=== PATIENT | female | born 1945 | race Caucasian/White ===

== ENCOUNTER 2022-03-24 10:24 | Outpatient (CLI) | payer MEDICARE, OTHER, SELFPAY ==
--- NOTE | 2022-03-24 12:48 | W.ANESCHARGE ---
Anesthesia Charges Start Date/Time Anesthesia Start Date: 03/24/22 Anesthesia Start Time: 11:43 Stop Date/Time Anesthesia Stop Date: 03/24/22 Anesthesia Stop Time: 12:46 Summary Emergency: No Extremes of Age: Over [id number] [id number]
--- NOTE | 2022-03-24 12:53 | W.ANESCHARGE ---
Anesthesia Charges Start Date/Time Anesthesia Start Date: 03/24/22 Anesthesia Start Time: 11:43 Stop Date/Time Anesthesia Stop Date: 03/24/22 Anesthesia Stop Time: 12:46 Summary Emergency: No
== END 2022-03-24 10:25 | disposition home or self-care (01) ==
LOC: OP CLINIC 10:27
PROVIDERS: PCP Family Medicine; Visit Provider Surgery
DX: K52.9 Noninfective gastroenteritis and colitis, unspecified (principal); K63.5 Polyp of colon; K92.2 Gastrointestinal hemorrhage, unspecified; K57.30 Diverticulosis of large intestine without perforation or abscess without bleeding
CPT/HCPCS: 45380; 45381; 45385; 811; 88305; 99100

== ENCOUNTER 2024-04-23 14:32 | Inpatient (IN) | payer MEDICARE, OTHER, SELFPAY ==
[2024-04-23] VITALS (27 sets, daily range): BP systolic 112–143; BP diastolic 59–80; PULSE 66–85; RESP 18–32; TEMP 37.1–38.1; O2SAT 90–94; BMI 29.2; BMI 31.2
--- NOTE | 2024-04-23 15:01 | ED_ITS ---
HPI - General Adult General Time Seen by Provider: 15:01 Date Seen: 04/23/24 Chief complaint: Chest Pain Stated complaint: Heart pain, temp, chest pain last night Time Seen by Provider: 04/23/24 14:43 Source: patient and RN notes reviewed Mode of arrival: ambulatory Limitations: no limitations History of Present Illness HPI narrative: This 78-year-old female is brought in by her neighbor for concern of possible heart attack. At 2:00 a.m. she reports she awoke last night feeling chilled and was freezing. She did not know she had a temperature but did have 1 on arrival here of 100.6? F. She did feel short of breath with exertion. Around 4:00 a.m. today she started with right-sided chest pain. She has headache. She has right-sided flank pain. She has had a partial nephrectomy for kidney cancer but denies any history of pyelonephritis. It does not sound like she has chronic history of UTIs. This right-sided kidney pain has been coming and going. It did start up again last night. She has a dry mouth right now, has not had any appetite today but no nausea or vomiting. She has had poor oral intake. She feels weak and dizzy. She is not coughing. Related Data Home Medications ?Medication ?Instructions ?Recorded ?Confirmed acetaminophen 500 mg capsule 1,000 mg PO Q12H 04/23/24 04/23/24 atenolol 50 mg tablet 50 mg PO DAILY 04/23/24 04/23/24 chlorthalidone 25 mg tablet 12.5 mg PO DAILY 04/23/24 04/23/24 gabapentin 100 mg capsule mg PO 04/23/24 levothyroxine 112 mcg tablet 112 mcg PO QAM 04/23/24 04/23/24 multivitamin 1 tab PO DAILY 04/23/24 04/23/24 potassium chloride 20 mEq 20 meq PO DAILY 04/23/24 04/23/24 tablet,extended release(part/cryst) (Klor-Con M) sertraline 100 mg tablet 100 mg PO DAILY 04/23/24 04/23/24 spironolactone 25 mg tablet 25 mg PO QAM 04/23/24 04/23/24 Allergies Allergy/AdvReac Type Severity Reaction Status Date / Time acetaminophen Allergy Unknown Nausea Verified 04/23/24 17:41 amlodipine Allergy Unknown Arthralgias Verified 04/23/24 17:41 codeine Allergy Unknown Verified 04/23/24 17:41 furosemide Allergy Unknown Rash Verified 04/23/24 17:41 hydrocodone Allergy Unknown Nausea Verified 04/23/24 17:41 latex Allergy Unknown Itching Verified 04/23/24 17:41 and bumpy rash lisinopril Allergy Unknown Tingling Verified 04/23/24 17:41 Milk derivatives Allergy Unknown Uncoded 04/23/24 17:41 Review of Systems Status of ROS: Reports: 6 or more systems reviewed and unremarkable except as noted in History and below [facility] Medical History Depression ?F32.A - Depression, unspecified (ICD-10) Peripheral sensory neuropathy ?G60.8 - Other hereditary and idiopathic neuropathies (ICD-10) Renal cancer ?C64.9 - Malignant neoplasm of unspecified kidney, except renal pelvis (ICD- 10) Thyroid cancer ?C73 - Malignant neoplasm of thyroid gland (ICD-10) Hypertension ?I10 - Essential (primary) hypertension (ICD-10) Hyperlipidemia ?E78.5 - Hyperlipidemia, unspecified (ICD-10) Meningioma ?D32.9 - Benign neoplasm of meninges, unspecified (ICD-10) Hepatic steatosis ?K76.0 - Fatty (change of) liver, not elsewhere classified (ICD-10) Chronic diarrhea ?K52.9 - Noninfective gastroenteritis and colitis, unspecified (ICD-10) [place] syndrome ?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Z90.49 - Acquired absence of other specified parts of digestive tract (ICD- 10) Family History (Updated 04/23/24 @ 19:35 by Solitario Mitchell MD) Mother High blood pressure Father High blood pressure Heart disease Social History (Updated 04/23/24 @ 19:36 by Solitario Mitchell MD) Narrative: She lives alone in [place]. Her healthcare power of sharemilker is her neighbor, Fermin Jessica, and her daughter Deyanira. She does not smoke. She does not drink alcohol. What is your current living situation?: I presently have a place to live Problems where you live: no known problems Problems where you live details: NA In the past 12 months, utilities in danger of being shut off: no In past 12 months, lack of transportation kept you from medical appts, meetings, work, or getting things needed for daily living: no In the past 12 mos, have been you worried that your food would run out before you had money to buy more?: never true In the past 12 mos, the food you bought just didn't last and you didn't have money to buy more?: never true Highest level of school completed/degree received: Doctoral degree Smoking Status: Never smoker Do you use any of these nicotine containing products: None Second hand tobacco smoke exposure: No How often do you have a drink containing alcohol: never How often do you have six or more drinks on one occasion: Never AUDIT-C Alcohol total score: 0 Non-prescribed substance use: denies use Caffeine: Yes How often does anyone, including family, friends and others, physically hurt you : never How often does anyone, including family, friends and others, insult or talk down to you: never How often does anyone, including family, friends and others, threaten you with harm: never How often does anyone, including family, friends and others, scream or curse at you: never service: No Exam 2 Const: Vital Signs, click to edit/add: Vital Signs - 24 hr 04/23/24 14:40 04/23/24 14:49 04/23/24 14:50 Temperature 100.6 F H Pulse Rate 83 82 Pulse Rate [Pulse Oximeter] 85 Respiratory Rate 32 H Blood Pressure Blood Pressure [Le ft Upper Arm] 125/80 Pulse Oximetry 94 94 94 Oxygen Delivery Me thod Room Air Room Air Room Air 04/23/24 15:00 04/23/24 15:02 04/23/24 15:10 Temperature Pulse Rate 79 79 78 Pulse Rate [Pulse Oximeter] Respiratory Rate Blood Pressure 142/67 H Blood Pressure [Le ft Upper Arm] Pulse Oximetry 94 93 93 Oxygen Delivery Me od Room Air Room Air Room Air 04/23/24 15:20 04/23/24 15:31 04/23/24 15:32 Temperature Pulse Rate 79 79 77 Pulse Rate [Pulse Oximeter] Respiratory Rate Blood Pressure 134/73 Blood Pressure [Le ft Upper Arm] Pulse Oximetry 93 91 91 Oxygen Delivery Me od Room Air 04/23/24 15:33 04/23/24 15:35 04/23/24 15:37 Temperature 100.6 F H Pulse Rate 77 Pulse Rate [Pulse Oximeter] Respiratory Rate Blood Pressure Blood Pressure [Le ft Upper Arm] Pulse Oximetry 91 92 Oxygen Delivery Me thod 04/23/24 15:40 04/23/24 15:50 04/23/24 16:00 Temperature Pulse Rate 75 76 77 Pulse Rate [Pulse Oximeter] Respiratory Rate Blood Pressure Blood Pressure [Le ft Upper Arm] Pulse Oximetry 93 93 94 Oxygen Delivery Me thod 04/23/24 16:02 04/23/24 16:10 04/23/24 16:20 Temperature Pulse Rate 75 75 Pulse Rate [Pulse Oximeter] Respiratory Rate Blood Pressure 143/70 H Blood Pressure [Le ft Upper Arm] Pulse Oximetry 91 91 Oxygen Delivery Me thod 04/23/24 16:30 04/23/24 16:32 04/23/24 16:40 Temperature Pulse Rate 75 76 75 Pulse Rate [Pulse Oximeter] Respiratory Rate Blood Pressure 127/65 Blood Pressure [Le ft Upper Arm] Pulse Oximetry 90 91 91 Oxygen Delivery Me thod 04/23/24 17:18 04/23/24 17:42 Temperature 99.4 F Pulse Rate 76 Pulse Rate [Pulse Oximeter] Respiratory Rate Blood Pressure 125/67 112/59 L Blood Pressure [Le ft Upper Arm] Pulse Oximetry 91 Oxygen Delivery Me thod This 78-year-old female is alert and interactive, sitting in the bed in exam room 8, looks pale but is in no apparent distress. Speech is normal, able answer questions. Had 1 small dry cough lie was with her but states she just felt like her mouth was dry, states she has not been doing this chronically. Sclera clear, conjugate gaze, symmetrical facial function. Neck supple, no adenopathy. She has basilar crackles on the right side, do not hear my on the left, good air entry elsewhere throughout, no wheezing or crackles, no tachypnea. CV regular rate and rhythm, no murmur, normal S1-S2, no S3-S4. Abdomen is soft, no rebound or guarding, no organomegaly felt. She has no lower extremity edema. No focal neurologic change in her extremities as far as sensory or strength. Note no skin change of any concerning issues such as cellulitis. She has a few scabbed areas on her anterior tibias bilaterally but no concern for infection P Documenting provider has reviewed patient's vital signs: yes Course Course ED Course: Patient is obviously febrile, do hear crackles right base, do wonder she could have pneumonia. Will start with a portable chest x-ray. There is significant shortage of blood cultures, will stratify her risk with lactate and procalcitonin and clinical observation initially. Did order some acetaminophen and a L of IV fluids. May need consider advanced imaging. Will get a full complement of labs. This could be respiratory, even COVID, could be urinary or intra-abdominal. Will await for some of our initial labs, chest x-ray to further delineate. Will order a D-dimer just to ensure no complicating concern for venous thromboembolic disease. This certainly points to infectious etiology, just need to find the source. Need to consider blood cultures in the appropriate scenario for this patient, continue to monitor for sepsis. Reevaluation(s) Time of Reevaluation #1: 16:14 Reevaluation #1: Patient's lactate is elevated at 6.7. Have ordered a subsequent 2 L of normal saline. We will do 1 blood culture. Due to the severe shortage of blood cultures and no definite end to this crisis, 1 blood culture is being ordered only. Will talk to nursing staff to try to make sure that we get urinalysis rather quickly. Time of Reevaluation #2: 17:22 Reevaluation #2: Patient's magnesium is low 1.4. Have ordered some IV magnesium as well. Both magnesium and potassium will need correction. Continue to work to identify source of infection. Time of Reevaluation #3: 18:01 Reevaluation #3: Did order IV Zosyn while we await images from the CTs to be read. Urinalysis shows some mild changes but is not overwhelmingly definitive for infection. Consultations Consultation #1: Did preliminarily review with the hospitalist Dr. Mitchell. He agrees with proceeding with chest CT PE protocol and follow through into the abdomen and pelvis. I have also order the repeat lactate for 6:25 p.m.. Patient is requirements for sepsis criteria for fluids are 2313 mL. She does have mildly elevated proBNP, chest x-ray shows some a mild interstitial changes concerning for pulmonary edema. Patient is allergic to Lasix with a rash. Do not want to fluid overload this patient. Her blood pressure and pulse maintain stability, thus will hold with the 2 L of IV fluids and continue to follow her clinically. Her potassium was low, have initiated both oral and IV replacement. It is likely that she will need hospitalization. Will update her on the current plan. Time: 17:09 Vital Signs Vital signs: Initial Vital Signs Temperature 100.6 F H 04/23/24 14:40 Temperature Source Temporal Artery Scan 04/23/24 14:40 Pulse Rate 85 04/23/24 14:40 Pulse Rhythm Regular 04/23/24 14:40 Respiratory Rate 32 H 04/23/24 14:40 Blood Pressure 125/80 04/23/24 14:40 Blood Pressure Mean 95 04/23/24 14:40 Blood Pressure Position Supine 04/23/24 14:40 Pulse Oximetry 94 04/23/24 14:40 Oxygen Delivery Method Room Air 04/23/24 14:40 Vital Signs Temperature 100.6 F H 04/23/24 14:40 Pulse Rate 85 04/23/24 14:40 Respiratory Rate 32 H 04/23/24 14:40 Blood Pressure 125/80 04/23/24 14:40 Pulse Oximetry 94 04/23/24 14:40 Oxygen Delivery Method Room Air 04/23/24 14:40 Temperature 99.2 F 04/23/24 20:59 Pulse Rate 66 04/23/24 19:30 Respiratory Rate 18 04/23/24 19:30 Blood Pressure 130/61 04/23/24 19:30 Pulse Oximetry 94 04/23/24 19:30 Oxygen Delivery Method Room Air 04/23/24 19:30 Medications Administered Medications: Generic Name Dose Route Start Last Admin Trade Name Freq PRN Reason Stop Dose Admin Acetaminophen 650 mg 04/23/24 18:42 04/23/24 20:59 Acetaminophen 325 Mg Tablet PO 650 mg Q4H PRN Administration Enoxaparin Sodium 40 mg 04/23/24 21:00 04/23/24 20:55 Enoxaparin 40 Mg/0.4 Ml Inj SUBCUT 40 mg HS PARUL Administration Gabapentin 100 mg 04/23/24 21:00 04/23/24 20:55 Gabapentin 100 Mg Capsule PO 100 mg BID PARUL Administration Sodium Chloride 5 ml 04/23/24 21:00 04/23/24 20:55 Sodium Chloride 0.9 % (Flush) 10 Ml Syringe IVF 5 ml BID PARUL Administration Sodium Chloride 5 ml 04/23/24 21:00 04/23/24 21:01 Sodium Chloride 0.9 % (Flush) 10 Ml Syringe IVF Not Given BID PARUL Discontinued Medications Generic Name Dose Route Start Last Admin Trade Name Socrates PRN Reason Stop Dose Admin Acetaminophen 650 mg 04/23/24 15:12 04/23/24 15:37 Acetaminophen 325 Mg Tablet PO 04/23/24 15:13 650 mg ONCE ONE Administration Sodium Chloride 1,000 mls @ 500 mls/hr 04/23/24 15:11 04/23/24 17:14 0.9 % Sodium Chloride 1000 Ml IV 04/23/24 17:10 Infused .Q2H PARUL Infusion Sodium Chloride 1,000 mls @ 1,000 mls/hr 04/23/24 16:13 04/23/24 18:42 0.9 % Sodium Chloride 1000 Ml IV 04/23/24 17:12 Infused .Q1H PARUL Infusion Potassium Chloride 10 meq in 100 mls @ 100 mls/hr 04/23/24 16:36 04/23/24 18:27 Potassium Chloride IVPB 04/23/24 17:35 Infused ONCE ONE Infusion Magnesium Sulfate/Dextrose 1 gm in 100 mls @ 100 mls/hr 04/23/24 17:21 04/23/24 17:52 Magnesium Sulf 1 G/100 Ml-D5w IVPB 04/23/24 18:20 100 mls/hr ONCE ONE Administration Piperacillin Sod/Tazobactam 100 mls @ 200 mls/hr 04/23/24 17:59 04/23/24 19:03 Sod 3.375 gm/ Sodium Chloride IVPB 04/23/24 18:00 200 mls/hr ONCE ONE Administration Potassium Bicarbonate 25 meq 04/23/24 16:36 04/23/24 17:11 Potassium Bicarb 25 Meq Effervescent Tab PO 04/23/24 16:37 25 meq ONCE ONE Administration Potassium Bicarbonate 50 meq 04/23/24 18:51 04/23/24 20:55 Potassium Bicarb 25 Meq Effervescent Tab PO 04/23/24 18:52 50 meq ONCE ONE Administration Medical Decision Making Lab Data Lab results reviewed: Yes I reviewed the patient's lab results Lab results narrative: Repeat lactate is significantly improved. Labs: Lab Results 04/23/24 04/23/24 04/23/24 Range/Units 15:25 15:25 15:25 WBC 10.27 (4.50-11.00) K/uL RBC 4.46 (4.00-5.20) m/uL Hgb 12.9 (12.0-16.0) gm/dL Hct 39.3 (33.0-51.0) % MCV 88 (80-100) fL MCH 29 (26-34) pg MCHC 33 (32-36) gm/dL RDW Coeff of Mansi 13.4 (11.5-15.5) % Plt Count 149 (140-440) K/uL Neut % (Auto) 93.0 H (42.0-72.0) % Lymph % (Auto) 1.9 L (20-44) % Republic % (Auto) 3.5 (0.0-11.0) % Eos % (Auto) 0.1 (0.0-7.0) % Baso % (Auto) 0.2 (0.0-3.0) % Neut # (Auto) 9.60 H (1.7-7.0) K/uL Lymph # (Auto) 0.20 L (0.90-2.90) K/uL Republic # (Auto) 0.40 (0.00-0.90) K/UL Eos # (Auto) 0.01 (0.00-0.50) K/uL Baso # (Auto) 0.02 (0.00-0.30) K/uL Abs Immat Gran (auto) 0.13 (0.00-0.30) K/uL Imm/Tot Granulo (auto) 1.3 % D-Dimer Quant (PE/DVT) 0.80 H (0.00-0.50) ug/ml VBG pH 7.402 (7.32-7.43) VBG pCO2 39 L (40-50) mmHG VBG pO2 33.3 (25-47) mmHG VBG HCO3 24 (21-28) mmol/L Sodium 134 L (135-149) mmol/L Potassium 2.8 L* (3.6-5.1) mmol/L Chloride 98 (96-114) mmol/L Carbon Dioxide 22 (20-32) mmol/L Anion Gap 14 (7-15) mEq/L BUN 19 (7-30) mg/dL Creatinine 1.0 (0.5-1.5) mg/dL Estimated Creat Clear 40.68 Estimated GFR 58 ml/min Glucose 266 H (60-115) mg/dL Hemoglobin A1c 6.2 H (0-5.6) % Lactate 6.7 H* (0.5-1.9) mmol/L Calcium 9.5 (8.4-10.6) mg/dL Magnesium 1.4 L (1.5-2.6) mg/dL Total Bilirubin 1.1 (0.1-1.5) mg/dL AST 39 H (12-35) U/L ALT 40 H (4-35) U/L Alkaline Phosphatase 43 (40-150) U/L Troponin I 0.02 Cancelled (0.01-0.04) ng/mL C-Reactive Protein 6.2 H (0.5-1.0) mg/dL NT-Pro-B Natriuret Pep 1410 pg/mL Total Protein 6.9 (6.0-8.3) g/dL Albumin 4.3 (3.3-5.0) g/dL Procalcitonin 6.25 H Cancelled (<0.50) ng/mL Urine Color (Yellow) Urine Appearance (Clear) Urine pH (5.0-8.5) Ur Specific Pinson (1.000-1.030) Urine Protein (Negative) Urine Glucose (UA) (Negative) Urine Ketones (Negative) Urine Blood (Negative) Urine Nitrite (Negative) Urine Bilirubin (Negative) Urine Urobilinogen (0.2-1.0) Ur Leukocyte Esterase (Negative) Urine RBC (0-2) Urine WBC (0-5) Ur Squamous Epith Cells (None-Few) Urine Bacteria (None) SARS-CoV-2 (PCR) Negative SARS-CoV-2 (Negative) Influenza Type A (PCR) Negative PCR FLU A (Negative) Influenza Type B (PCR) Negative PCR FLU B (Negative) RSV (PCR) Negative PCR RSV (Negative) Lab Acknowledgement 04/23/24 04/23/24 04/23/24 Range/Units 17:00 17:40 18:45 WBC (4.50-11.00) K/uL RBC (4.00-5.20) m/uL Hgb (12.0-16.0) gm/dL Hct (33.0-51.0) % MCV (80-100) fL MCH (26-34) pg MCHC (32-36) gm/dL RDW Coeff of Mansi (11.5-15.5) % Plt Count (140-440) K/uL Neut % (Auto) (42.0-72.0) % Lymph % (Auto) (20-44) % Republic % (Auto) (0.0-11.0) % Eos % (Auto) (0.0-7.0) % Baso % (Auto) (0.0-3.0) % Neut # (Auto) (1.7-7.0) K/uL Lymph # (Auto) (0.90-2.90) K/uL Republic # (Auto) (0.00-0.90) K/UL Eos # (Auto) (0.00-0.50) K/uL Baso # (Auto) (0.00-0.30) K/uL Abs Immat Gran (auto) (0.00-0.30) K/uL Imm/Tot Granulo (auto) % D-Dimer Quant (PE/DVT) (0.00-0.50) ug/ml VBG pH (7.32-7.43) VBG pCO2 (40-50) mmHG VBG pO2 (25-47) mmHG VBG HCO3 (21-28) mmol/L Sodium (135-149) mmol/L Potassium (3.6-5.1) mmol/L Chloride (96-114) mmol/L Carbon Dioxide (20-32) mmol/L Anion Gap (7-15) mEq/L BUN (7-30) mg/dL Creatinine (0.5-1.5) mg/dL Estimated Creat Clear Estimated GFR ml/min Glucose (60-115) mg/dL Hemoglobin A1c (0-5.6) % Lactate 1.9 (0.5-1.9) mmol/L Calcium (8.4-10.6) mg/dL Magnesium (1.5-2.6) mg/dL Total Bilirubin (0.1-1.5) mg/dL AST (12-35) U/L ALT (4-35) U/L Alkaline Phosphatase (40-150) U/L Troponin I 0.02 (0.01-0.04) ng/mL C-Reactive Protein (0.5-1.0) mg/dL NT-Pro-B Natriuret Pep pg/mL Total Protein (6.0-8.3) g/dL Albumin (3.3-5.0) g/dL Procalcitonin (<0.50) ng/mL Urine Color Yellow (Yellow) Urine Appearance Clear (Clear) Urine pH 5.5 (5.0-8.5) Ur Specific Pinson 1.020 (1.000-1.030) Urine Protein Negative (Negative) Urine Glucose (UA) Negative (Negative) Urine Ketones Negative (Negative) Urine Blood Negative (Negative) Urine Nitrite Negative (Negative) Urine Bilirubin Negative (Negative) Urine Urobilinogen 0.2 (0.2-1.0) Ur Leukocyte Esterase Trace A (Negative) Urine RBC 2-5 A (0-2) Urine WBC 5-10 A (0-5) Ur Squamous Epith Cells Few (None-Few) Urine Bacteria Few A (None) SARS-CoV-2 (PCR) (Negative) Influenza Type A (PCR) (Negative) Influenza Type B (PCR) (Negative) RSV (PCR) (Negative) Lab Acknowledgement Test Added Test Added Imaging Data Chest x-ray: Attestation: I have reviewed the pertinent imaging results. My impression: Did review chest imaging, does seem that there could be a congestive pattern. Await Radiology over-read. Radiologist's impression: Patient: MEGAN ARTHUR Facility:[facility] Patient ID:?[id number] Site Patient ID:?[id number]. Site :?1945 Study:?XRay-Chest Portable 1 View-04/23/2024 3:23:53 PM Ordering Physician:?Omero Perez Final Report: Indication: Chest pain Comparison: None available. Technique: Single AP view chest Findings: There are increased interstitial markings likely representing pulmonary vascular congestion. There is no focal consolidation, effusion, or pneumothorax. The cardiomediastinal silhouette is within normal limits. The bony thorax is grossly intact. Impression: Increased interstitial markings consistent with mild pulmonary edema. Dictated by Arsen Maxwell MD @ 04/23/2024 3:37:49 PM (Electronic Signature) CT Chest/Ab/Pelvis: Attestation: I have reviewed the pertinent imaging results. Radiologist's impression: Patient: MEGAN ARTHUR Facility:?[facility] Patient ID:?[id number] Site Patient ID:?[id number]. Site :?1945 Study:?CT-Abdomen/Pelvis 95CC ISOVUE 370-04/23/2024 5:40:53 PM Ordering Physician:?Omero Perez Final Report: INDICATION: Right-sided chest pain, elevated D-dimer, fever, and weakness. CT CHEST, ABDOMEN, AND PELVIS WITH CONTRAST TECHNIQUE: Multidetector CT imaging was performed through the chest, abdomen, and pelvis following intravenous contrast administration using 95 mL Isovue 370. Coronal and sagittal reconstructions were generated. COMPARISON: 05/23/2020 CT abdomen and pelvis. FINDINGS: Lungs and airways: Multiple small noncalcified bilateral lung nodules, the largest in the right upper lobe on image 25 of series 5 measuring 9 millimeters in size. Those nodules in the lung bases included on the prior CT of the abdomen and pelvis appear stable. Nonspecific mild mosaic attenuation pattern in the lungs, most pronounced on the right. Central airways are patent. Pleura and pleural spaces: No pleural effusions or pneumothorax. Heart and mediastinum: Normal heart size. No significant pericardial effusion. Incompletely imaged postoperative changes of the thyroid. No pathologically enlarged mediastinal lymph nodes. Vascular structures: No filling defects in the pulmonary arterial tree to suggest pulmonary emboli. Normal caliber aorta. [id number] aortoiliac atherosclerotic changes. Chest wall and axillae: No mass or axillary lymphadenopathy. Liver and spleen: Unremarkable liver aside from a 1.7 centimeter cyst in the inferomedial right hepatic lobe on image 44 of series 2. Mild splenomegaly measuring 14.9 centimeters in AP dimension, slightly increased compared to the previous exam. Gallbladder and bile ducts: Status post cholecystectomy. Unchanged mild dilation of the extrahepatic bile duct likely reflecting post cholecystectomy reservoir effect. Pancreas, adrenals, and retroperitoneum: No pancreatic mass identified. Stable left adrenal 1.5 centimeter nodule. No pathologically enlarged lymph nodes identified in the abdomen or pelvis. Kidneys, ureters, and urinary bladder: Post ablated changes at the lower pole of the right kidney appear stable. Unchanged right renal cysts. Previously seen 1.7 x 1.6 centimeter hypodense lesion in the superior left kidney has decreased in size and now measures 1.4 x 1.2 centimeters, suggesting a benign etiology. Several tiny hypodense foci elsewhere in the left kidney are not well characterized but appear stable. No hydronephrosis. No bladder mass or definite wall thickening. Gastrointestinal tract and peritoneum: Postoperative changes at the esophagogastric junction likely representing prior Melony fundoplication. Nonspecific mild increase in small bowel gas and fluid without discrete caliber transition, favored to represent gastroenteritis. Early or partial small bowel obstruction is considered less likely. Multiple sigmoid colon diverticula are noted, without evidence of diverticulitis. No free air, abscess, or significant free fluid. Reproductive organs: Status post hysterectomy. Bones: Nondisplaced fractures of the anterior right 3rd and 4th ribs, favored to be subacute in age. Mild spinal degenerative changes. IMPRESSION: 1. Nonspecific mild prominence of small bowel gas and fluid, potentially representing gastroenteritis. Early or partial small bowel obstruction is c onsidered less likely. 2. Mild mosaic attenuation pattern in the lungs, greatest on the right, nonspecific. Infection is not excluded. 3. Subacute nondisplaced fractures of the anterior right 3rd and 4th ribs. 4. No pulmonary emboli identified. 5. Nonacute additional findings as detailed above. ANY NDIAYE MD [employer] Dictated by Nick Ndiaye MD @ 04/23/2024 7:14:00 PM Please note that all CT scans at this facility use dose modulation, iterative reconstruction, and/or weight-based dosing when appropriate to reduce radiation dose to as low as reasonably achievable. Dictated by: Nick Ndiaye MD @ 04/23/2024 19:15:57 (Electronic Signature) ECG Data Attestation: I personally reviewed and interpreted this ECG as follows: (Normal sinus rhythm, normal EKG without any evidence of active ischemia or infarct, artifact noted in V5 however.) Prior ECG tracings: not available for review Discharge Plan Discharge Clinical Impression: Hypokalemia, Hypomagnesemia Fever Qualifiers: Fever type: unspecified Qualified Code(s): R50.9 - Fever, unspecified
--- NOTE | 2024-04-23 15:10 | CRLHL7_ITS ---
For Patients: As a result of the Century Cures Act, medical imaging exams and procedure reports are released immediately into your electronic medical record. You may view this report before your referring provider. If you have questions, please contact your health care provider. Indication: Chest pain Comparison: None available. Technique: Single AP view chest Findings: There are increased interstitial markings likely representing pulmonary vascular congestion. There is no focal consolidation, effusion, or pneumothorax. The cardiomediastinal silhouette is within normal limits. The bony thorax is grossly intact. Impression: Increased interstitial markings consistent with mild pulmonary edema. Dictated by Arsen Maxwell MD @ 04/23/2024 3:37:49 PM (Electronically Signed)
[2024-04-23] MEDS: ACETAMINOPHEN 325 MG TABLET 650 MG PO ×2 (15:37→20:59)
[2024-04-23] MEDS: 0.9 % SODIUM CHLORIDE 1000 ml 1,000 ML 500 ML IV (15:37)
[2024-04-23 15:40] LABS: HCO3 VBG 24 mmol/L (21-28); PCO2 VBG 39 mmHG (40-50); PO2 VBG 33.3 mmHG (25-47); pH VBG 7.402 (7.32-7.43)
[2024-04-23 15:44] LABS: Lactate* 6.7 mmol/L (0.5-1.9)
[2024-04-23 15:45] LABS: Basophils Absolute Auto 0.02 K/uL (0.00-0.30); Basophils Percent Auto 0.2 % (0.0-3.0); Eosinophils Absolute Auto 0.01 K/uL (0.00-0.50); Eosinophils Percent Auto 0.1 % (0.0-7.0); Hematocrit 39.3 % (33.0-51.0); Hemoglobin* 12.9 gm/dL (12.0-16.0); Immature Granulocytes Abs Auto 0.13 K/uL (0.00-0.30); Immature Granulocytes Pct Auto 1.3 %; Lymphocytes Percent Auto 1.9 % (20-44); Mean Corpuscular HGB Conc 33 gm/dL (32-36); Mean Corpuscular Hemoglobin 29 pg (26-34); Mean Corpuscular Volume 88 fL (80-100); Monocytes Percent Auto 3.5 % (0.0-11.0); Platelet Count* 149 K/uL (140-440); RDW Coefficient of Variation % 13.4 % (11.5-15.5); Red Blood Count 4.46 m/uL (4.00-5.20); Slide Review Reflex No; White Blood Count* 10.27 K/uL (4.50-11.00)
--- OUTSIDE RECORDS SUMMARY | 2024-04-23 15:47 | XMS_ITS | Clinical Summary ---
Author Organization [facility] Address [place], [place] [address] Care Team Providers Care Devops Name Role Phone GoldsmithMatty Angie Unavailable Norma Pérez DO Primary Care Provider [phone] Allergies Active Allergy Reactions Criticality Noted Date Comments Adhesive Tape-Silicones Rash 03/08/2006 Codeine Syncope Milk GI Upset 01/14/2007 Furosemide Rash 12/10/2008 Latex Rash 12/23/2008 Lisinopril Headache 12/10/2008 Losartan Edema 11/07/2016 Amlodipine Arthralgia,Cough,Melo ma 09/20/2012 Howe terrible on it Penicillins Rash 01/04/2006 Hydrocodone-Acetaminoph en Nausea Only,Syncope 12/22/2008 Medications Medication Sig Dispensed Refills Start Date End Date Status PHOTOTHERAPY LIGHT BOX For home use 1 0 09/25/19 09 Active acetaminophen (TYLENOL EXTRA STRGTH) 500 mg tabletIndications :Acute right lumbar radiculopathy Take 2 tablets by mouth 2 times daily. Max acetaminophen dose: 4000mg in 24 hrs. 0 07/24/20 17 Active multivitamin (MVI) tablet Take 1 tablet by mouth. Active Walker - 4 wheelsIndications :Peripheral sensory neuropathy,Balanc e problem For home use. With seat. Length of need: lifelong 1 Each 03/07/20 22 Active cholecalciferol (Vitamin D) 1,000 unit capsule Take 1 Capsule (1,000 units) by mouth once daily. 0 03/27/20 22 Active gabapentin (NEURONTIN) 100 mg capsuleIndication s:Burning pain Take 3 capsules in morning, 1 capsule afternoon, 3 capsules in evening. 630 Capsule 3 05/01/20 Active Additional Information Patient taking differently: 200 mg BID, (No instructions reported), Reported on 04/08/2024 potassium chloride (Klor-Con M20) 20 mEq extended-release tablet (part/cryst)Indic ations:Hypokalemi a Take 1 Tablet (20 mEq) by mouth once daily with a meal. 90 Tablet 3 05/08/20 Active levothyroxine (SYNTHROID) 112 mcg tabletIndications :Hypothyroidism (acquired) Take 1 Tablet (112 mcg) by mouth before breakfast. 90 Tablet 3 05/08/20 Active sertraline (ZOLOFT) 100 mg tabletIndications :Dysthymic disorder Take 1 Tablet (100 mg) by mouth once daily. 90 Tablet 3 05/08/20 Active atenoloL (TENORMIN) 50 mg tabletIndications :Essential hypertension TAKE 1 TABLET BY MOUTH EVERY DAY 30 Tablet 04/07/20 24 Active spironolactone (ALDACTONE) 25 mg tabletIndications :HTN (hypertension) TAKE 1 TABLET BY MOUTH EVERY DAY IN THE MORNING 30 Tablet 04/07/20 24 Active chlorthalidone (HYGROTON) 25 mg tabletIndications :Hypertension, unspecified type TAKE 1/2 TABLET BY MOUTH DAILY 15 Tablet 04/07/20 24 Active C/sourcherry/ozzy ry/grape seed (TART TERRY ORAL) Take by mouth. 1200 mg daily 024 Discontinued(*M ed complete/Regime n complete/Level of care change) atenoloL (TENORMIN) 50 mg tabletIndications :Essential hypertension TAKE 1 TABLET BY MOUTH EVERY DAY 90 Tablet 2 06/10/20 23 024 Discontinued chlorthalidone (HYGROTON) 25 mg tabletIndications :Hypertension, unspecified type TAKE 1/2 TABLET BY MOUTH EVERY DAY 45 Tablet 2 06/10/20 23 024 Discontinued spironolactone (ALDACTONE) 25 mg tabletIndications :HTN (hypertension) TAKE 1 TABLET BY MOUTH EVERY DAY IN THE MORNING 90 Tablet 2 06/10/20 23 024 Discontinued cephalexin (KEFLEX) 500 mg capsuleIndication s:Cellulitis of skin Take 1 Capsule (500 mg) by mouth three times daily for 7 days. 21 Capsule 04/08/20 24 024 Active Problems Problem Noted Date Diagnosed Date Fatty liver 05/15/2023 Osteoporosis 03/13/2022 Overview: On dexa 02/2022, recommend bisphosphonate therapy, patient declined. 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 Thought likely incidental meningiomas. Recommend repeat MRI in 3 months, if stable could repeat 1-2 years. Lipids abnormal 09/01/2011 Pain in right foot 05/04/2009 Dysthymic disorder 09/25/2008 Unspecified essential hypertension 12/01/2006 Prua-Ssdr-Qoxe syndrome Renal carcinoma Thyroid carcinoma Resolved Problems Problem Noted Date Diagnosed Date Resolved Date Depressive disorder, not elsewhere classified 12/10/2008 Encounters Date Type Department Care Team Description 04/08/2024 1:30 PM CDT Office Visit [facility] [address] [place] [address] Norma Pérez DO Derm Problem (Spots on arms and legs) 04/08/2024 Travel 04/05/2024 Refill [facility] [address] [place] [address] Stortz, Norma Cailin, DO Refill Request (Atenolol, Spironolactone, Chlorthalidone) from Last 3 Months Immunizations Name Administration Dates Next Due Amb Influenza, Inact (High-d ose Quadrivalent) (Flu Clinic Only) 06/29/2020 COVID-19 vaccine (Moderna 100mcg/0.5mL) PF, MDV 12/03/2020,11/05/2020 COVID-19 vaccine (Moderna Antwan traci 50mcg/0.25mL) PF, MDV 09/07/2021 Influenza, High-dose Quadrivalent Inactivated Influenza, IIV4 07/23/2018 Family History Medical History Relation Name Comments Heart Disease Father [place] AT 38, BYBP ASS GRAFTING AT 50 Hypertension Father Hypertension Mother Relation Name Status Comments Father Mother Social History Tobacco Use Types Packs/Day Years Used Date Smoking Tobacco: Never Smokeless Tobacco: Never Tobacco Cessation:Counseling Given: Yes Alcohol Use Standard Drinks/Week Comments No 0 (1 standard drink = 0.6 oz pur e alcohol) PHQ-2 Answer Date Recorded PHQ-2 TOTAL SCORE 2 05/01/2023 Social Connections Answer Date Recorded Frequency of Communication with Friends and Fami ly 0 04/08/2024 Financial Resource Strain Answer Date R ecorded Difficulty of Paying Living Expenses 3 04/08/2024 Difficulty of Paying Living Expenses Not on file 04/08/2024 Food Insecurity Answer Date Recorded Worried About Running Out of Food in the Last Ye ar 1 04/08/2024 Transportation Needs Answer Date Record ed Lack of Transportation (Medical) 1 04/08/2024 Housing Stability Answer Date Recorded Unable to Pay for Housing in the Last Year 1 04/08/2024 Sex and Gender Information Value Date Recorded Sex Assigned at Not on file Gender Identity Not on file Sexual Orientation Not on file Obstetrics History Para Term AB IAB SAB Ectopic Multiple Livin g Live Births 2 2 2 2 2 Date Outcome GA Total Labor Labor/2nd/3rd Weight Sex Type Anes PTL Nereyda A1 A5 Name Clin Term Living Term Living Last Filed Vital Signs Vital Sign Reading Time Taken Comments Blood Pressure 142/82 04/08/2024 2:11 PM CDT Pulse 61 04/08/2024 1:53 PM CDT Temperature 37.5 ??C (99.5 ??F) 04/13/2023 10:45 AM C DT Respiratory Rate 18 10/30/2016 2:29 PM ROPE WALKER Oxygen Saturation 96% 04/08/2024 1:53 PM CDT Inhaled Oxygen Concentration - - Weight 80.3 kg (177 lb) 04/08/2024 1:53 PM CDT Height 163.2 cm (5' 4.25) 05/01/2023 9:38 AM CD T Body Mass Index 30.14 05/01/2023 9:38 AM CDT Plan of Treatment Upcoming Encounters Date Type Department Care Team (Late st Contact Info) Description 05/06/2024 2:20 PM CDT Office Visit [facility] [address] [place] [address] Norma Pérez DO [address] [place] [address] Health Maintenance Due Date Last Done Comments Tdap 1956 Hepatitis C screening for ag e 18-79 1964 Zoster (shingles) series for age 50+ (1 of 2) 1996 Pneumococcal series for age 65+ (1 of 1 - PCV) 2011 Tetanus booster 12/10/2018 12/10/2008 (Declined) COVID-19 vaccine series ( season) 2023 07/12/2023, 07/14/2022, 03/16/2022, Additional history exists BMI (ht and wt on same day) for age 18+ 05/01/2024 05/01/2023, 03/13/2022, 03/07/2022, Additional history exists Medicare Wellness for age 65+ 05/01/2024, 03/07/2022, 09/06/2012 Depression screening for age 12+ 05/03/2024 05/03/2023, 05/01/2023, 03/13/2022, Additional history exists Influenza for age 65+ 05/18/2024 06/07/2021 , 06/29/2020, 07/23/2018 DEXA/DXA scan for age 65+ Completed 2021, 09/01/2011 (Declined) Procedures Procedure Name Priority Date/Time Associated Diagnosis Comments XR DXA BONE DENSITY 2 SITES AXIAL AND 1 SITE PERIPHERAL Routine 03/07/2022 3:38 PM CDT Osteoporosis, unspecified osteoporosis type, unspecified pathological fracture presence from Last 3 Months or Most Recently Relevant to Health Maintenance Results * (ABNORMAL) XR DXA BONE DENSITY 2 SITES AXIAL AND 1 SITE PERIPHERAL (03/07/2022 3:38 PM CDT) Anatomical Region Laterality Modality LUMBAR SPINE Other Impressions 03/13/2022 8:14 AM CDT Osteoporosis. RECOMMENDATIONS: The National Osteoporosis Foundation recommends pharmacologic treatment for patients with T-scores of -2.5 or less, patients with prior history of fragility fractures, or patients with 10-year probability of greater than 3% at hips or greater than 20% of suffering major osteoporotic fractures. Recommend continued optimization of calcium and vitamin D intake through dietary means and/or supplementation and regular exercise. Consider pharmacologic therapy for osteoporosis. Follow-up bone density reading in 2 years if therapy initiated to assess therapeutic efficacy. Karey Pereyra PA-C [facility] 03/13/2022 Narrative 03/13/2022 8:14 AM CDT For Patients: Results are automatically released to your [employer] account once available, in compliance with federal regulations. This means that you may see your results before your provider has had a chance to review them. Please allow 2-3 business days for your provider to comment on the results. XR DXA Bone Mineral Density (BMD) EXAM LOCATION: [address] [address] PATIENT NAME: Jennifer Stock DATE OF : 1945 EXAM DATE: 03/07/2022 REQUESTING PROVIDER: Norma Pérez, DO GENDER AT : female HEIGHT: 5' 3.75 (03/07/2022) WEIGHT: ??189 lb (03/07/2022) MENOPAUSAL STATUS: Postmenopausal RACE/ETHNICITY: White RISK FACTORS: Cancer Treatment, Family History of Osteoporosis, History of Fragility Fracture (at a major site), Hyperparathyroidism and White Race CURRENT MEDICATION FOR BONE LOSS: NONE INDICATION: Follow-up of existing osteopenia COMPARISON DATE(S): None DXA scans are compared to prior studies for a patient only when the two (or more) studies were performed on the same scanner. It is not possible to compare data generated on one scanner to data from another because there are not standards in DXA equipment. This applies even if the two scanners are made by the same jetting machine operator. PROCEDURE: Dual-energy x-ray absorptiometry performed with routine technique. Reporting is completed in the form of a T-score. The T-score represents the standard deviation from peak bone mass based on young healthy adult. A Z-score is used for diagnosis in premenopausal women, and for men under the age of 50. FINDINGS: RESULT LUMBAR SPINE L1 - L4 (L3)BMD: 1.038 g/cm2 T-Score: - 1.2 Z-Score: - 0.1 Change from prior: ??None RESULTS FEMUR Left femoral neck BMD: 0.696 g/cm2 T-Score: - 2.5 Z-Score: - 1.0 Change from prior: ??None Right femoral neck BMD: 0.671 g/cm2 T-Score: - 2.6 Z-Score: - 1.1 Change from prior: ??None Left hip BMD: 0.739 g/cm2 T-Score: - 2.1 Z-Score: - 0.9 Change from prior: ??None Right hip BMD: 0.707 g/cm2 T-Score: - 2.4 Z-Score: - 1.1 Change from prior: ??None RESULT FOREARM Right Forearm distal radius BMD: 0.602 g/cm2 T-Score: - 3.1 Z-Score: - 0.8 Change from prior: ??None WHO criteria: Normal: T-score at or above -1 SD Osteopenia: T-score between -1.1 and -2.4 SD Osteoporosis: T-score at or below -2.5 SD Norma Pérez DO DEXA from Last 3 Months or Most Recently Relevant to Health Maintenance Care Teams Devops Relationship Specialty Start Date End Date Norma Pérez DO [address] [place] [address] PCP - General Family Practice 09/12/13 Matty Goldsmith [address] [place] [id number] [employer] 09/06/12 Chand Team 09/06/12
[2024-04-23 16:03] LABS: Albumin* 4.3 g/dL (3.3-5.0); Chloride* 98 mmol/L (96-114); Sodium* 134 mmol/L (135-149)
[2024-04-23 16:05] LABS: Est. Creatinine Clearance* 40.68; Estimated Glomerular Filt Rate 58 ml/min
[2024-04-23 16:06] LABS: Alkaline Phosphatase* 43 U/L (40-150); Anion Gap 14 mEq/L (7-15); Aspartate Amino Transferase* 39 U/L (12-35); Bilirubin Total* 1.1 mg/dL (0.1-1.5); Blood Urea Nitrogen* 19 mg/dL (7-30); Carbon Dioxide* 22 mmol/L (20-32); Glucose* 266 mg/dL (60-115); Total Protein* 6.9 g/dL (6.0-8.3)
[2024-04-23 16:07] LABS: Calcium* 9.5 mg/dL (8.4-10.6); Magnesium* 1.4 mg/dL (1.5-2.6)
[2024-04-23 16:09] LABS: C Reactive Protein* 6.2 mg/dL (0.5-1.0)
[2024-04-23 16:17] LABS: NT Pro B Type NatriureticPept* 1410 pg/mL; Potassium* 2.8 mmol/L (3.6-5.1)
[2024-04-23 16:46] LABS: PCR FLU A Negative PCR FLU A (Negative); PCR FLU B Negative PCR FLU B (Negative); PCR RSV Negative PCR RSV (Negative); SARS PCR* Negative SARS-CoV-2 (Negative)
[2024-04-23 17:01] LABS: Troponin I* 0.02 ng/mL (0.01-0.04)
[2024-04-23 17:06] LABS: Procalcitonin* 6.25 ng/mL (<0.50)
--- NOTE | 2024-04-23 17:08 | CRLHL7_ITS ---
For Patients: As a result of the Century Cures Act, medical imaging exams and procedure reports are released immediately into your electronic medical record. You may view this report before your referring provider. If you have questions, please contact your health care provider. INDICATION: Right-sided chest pain, elevated D-dimer, fever, and weakness. CT CHEST, ABDOMEN, AND PELVIS WITH CONTRAST TECHNIQUE: Multidetector CT imaging was performed through the chest, abdomen, and pelvis following intravenous contrast administration using 95 mL Isovue 370. Coronal and sagittal reconstructions were generated. COMPARISON: 05/23/2020 CT abdomen and pelvis. FINDINGS: Lungs and airways: Multiple small noncalcified bilateral lung nodules, the largest in the right upper lobe on image 25 of series 5 measuring 9 millimeters in size. Those nodules in the lung bases included on the prior CT of the abdomen and pelvis appear stable. Nonspecific mild mosaic attenuation pattern in the lungs, most pronounced on the right. Central airways are patent. Pleura and pleural spaces: No pleural effusions or pneumothorax. Heart and mediastinum: Normal heart size. No significant pericardial effusion. Incompletely imaged postoperative changes of the thyroid. No pathologically enlarged mediastinal lymph nodes. Vascular structures: No filling defects in the pulmonary arterial tree to suggest pulmonary emboli. Normal caliber aorta. [id number] aortoiliac atherosclerotic changes. Chest wall and axillae: No mass or axillary lymphadenopathy. Liver and spleen: Unremarkable liver aside from a 1.7 centimeter cyst in the inferomedial right hepatic lobe on image 44 of series 2. Mild splenomegaly measuring 14.9 centimeters in AP dimension, slightly increased compared to the previous exam. Gallbladder and bile ducts: Status post cholecystectomy. Unchanged mild dilation of the extrahepatic bile duct likely reflecting post cholecystectomy reservoir effect. Pancreas, adrenals, and retroperitoneum: No pancreatic mass identified. Stable left adrenal 1.5 centimeter nodule. No pathologically enlarged lymph nodes identified in the abdomen or pelvis. Kidneys, ureters, and urinary bladder: Post ablated changes at the lower pole of the right kidney appear stable. Unchanged right renal cysts. Previously seen 1.7 x 1.6 centimeter hypodense lesion in the superior left kidney has decreased in size and now measures 1.4 x 1.2 centimeters, suggesting a benign etiology. Several tiny hypodense foci elsewhere in the left kidney are not well characterized but appear stable. No hydronephrosis. No bladder mass or definite wall thickening. Gastrointestinal tract and peritoneum: Postoperative changes at the esophagogastric junction likely representing prior Melony fundoplication. Nonspecific mild increase in small bowel gas and fluid without discrete caliber transition, favored to represent gastroenteritis. Early or partial small bowel obstruction is considered less likely. Multiple sigmoid colon diverticula are noted, without evidence of diverticulitis. No free air, abscess, or significant free fluid. Reproductive organs: Status post hysterectomy. Bones: Nondisplaced fractures of the anterior right 3rd and 4th ribs, favored to be subacute in age. Mild spinal degenerative changes. IMPRESSION: 1. Nonspecific mild prominence of small bowel gas and fluid, potentially representing gastroenteritis. Early or partial small bowel obstruction is considered less likely. 2. Mild mosaic attenuation pattern in the lungs, greatest on the right, nonspecific. Infection is not excluded. 3. Subacute nondisplaced fractures of the anterior right 3rd and 4th ribs. 4. No pulmonary emboli identified. 5. Nonacute additional findings as detailed above. ANY NDIAYE MD [employer] Dictated by Nick Ndiaye MD @ 04/23/2024 7:14:00 PM Please note that all CT scans at this facility use dose modulation, iterative reconstruction, and/or weight-based dosing when appropriate to reduce radiation dose to as low as reasonably achievable. Dictated by: Nick Ndiaye MD @ 04/23/2024 19:16:20 (Electronically Signed)
[2024-04-23 17:10] LABS: Appearance Urine Clear (Clear); Bilirubin Urine Negative (Negative); Blood Urine Negative (Negative); Color Urine Yellow (Yellow); Glucose Urine Negative (Negative); Ketones Urine Negative (Negative); Leukocyte Esterase Urine Trace (Negative); Nitrite Urine Negative (Negative); Protein Urine Negative (Negative); Urobilinogen Urine 0.2 (0.2-1.0); pH Urine 5.5 (5.0-8.5)
[2024-04-23] MEDS: POTASSIUM CHLORIDE 10 MEQ/100 ML PIGGYBACK 100 MEQ IVPB (17:10)
[2024-04-23] MEDS: POTASSIUM BICARB 25 MEQ EFFERVESCENT TAB PO (17:11)
[2024-04-23] MEDS: 0.9 % SODIUM CHLORIDE 1000 ml 1,000 ML IV (17:14)
[2024-04-23 17:26] LABS: Squamous Epithelial Cell Urine Few (None-Few)
[2024-04-23 17:27] LABS: Bacteria Urine Few
[2024-04-23 17:28] LABS: Alanine Aminotransferase* 40 U/L (4-35)
[2024-04-23 18:21] LABS: Hemoglobin A1C* 6.2 % (0-5.6)
[2024-04-23 18:48] LABS: Lactate* 1.9 mmol/L (0.5-1.9)
[2024-04-23] MEDS: PIPERACILLIN/TAZOBACTAM 3.375 GM in 0.9 % SODIUM CHLORIDE Mini-bag 100 ML IVPB (19:03)
--- NOTE | 2024-04-23 19:21 | P.IMHP_ITS ---
Hospitalist- H&P: HPI History of Present Illness Date Seen: 04/23/24 Chief complaint: Heart pain, temp, chest pain last night Narrative: Jennifer Stock is a 78 year old female admitted through the emergency department with onset of fever chills fatigue malaise and chest pain starting during the night last night. Patient reports that she was feeling well yesterday when she went to bed. She awoke about 2:00 a.m. with shaking chills and then about 2 hours later developed fever. She then noted some headache and chest pain. She has had profound fatigue and malaise today. She reports no cold or cough, pharyngitis. She has had nausea and has had 3 emesis today which were nonbloody. She has had no appetite and is eating no food today. She notes some right flank pain as well. Previous history of a right kidney cancer status post ablation at [facility] several years ago. She has c hronic nonbloody diarrhea which is unchanged from previous. She also has rectal incontinence which is chronic. She has not had any specific urinary symptoms. She has had no recent travel and has not been outside her home much. She has had chronic diarrhea and chronic rectal incontinence for about 18 years. Started after her Melony fundoplication and gastric surgery in 2005. She has had evaluation at [facility] for this. She tells me she did not complete evaluation but apparently did have a colonoscopy which she said was normal. [facility] Medical History Depression ?F32.A - Depression, unspecified (ICD-10) Peripheral sensory neuropathy ?G60.8 - Other hereditary and idiopathic neuropathies (ICD-10) Renal cancer ?C64.9 - Malignant neoplasm of unspecified kidney, except renal pelvis (ICD- 10) Thyroid cancer ?C73 - Malignant neoplasm of thyroid gland (ICD-10) Hypertension ?I10 - Essential (primary) hypertension (ICD-10) Hyperlipidemia ?E78.5 - Hyperlipidemia, unspecified (ICD-10) Meningioma ?D32.9 - Benign neoplasm of meninges, unspecified (ICD-10) Hepatic steatosis ?K76.0 - Fatty (change of) liver, not elsewhere classified (ICD-10) Chronic diarrhea ?K52.9 - Noninfective gastroenteritis and colitis, unspecified (ICD-10) 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Z90.49 - Acquired absence of other specified parts of digestive tract (ICD- 10) Family History (Updated 04/23/24 @ 19:35 by Solitario Mitchell MD) Mother High blood pressure Father High blood pressure Heart disease Social History (Updated 04/23/24 @ 19:36 by Solitario Mitchell MD) Narrative: She lives alone in [place]. Her healthcare power of field application engineer is her neighbor, Fermin Jessica, and her daughter Deyanira. She does not smoke. She does not drink alcohol. Smoking Status: Never smoker Do you use any of these nicotine containing products: None Second hand tobacco smoke exposure: No How often do you have a drink containing alcohol: never How often do you have six or more drinks on one occasion: Never AUDIT-C Alcohol total score: 0 Non-prescribed substance use: denies use service: No Meds Home Medications and Allergies Home Medications ?Medication ?Instructions ?Recorded ?Confirmed ?Type acetaminophen 500 mg capsule 1,000 mg PO Q12H 04/23/24 04/23/24 History atenolol 50 mg tablet 50 mg PO DAILY 04/23/24 04/23/24 History chlorthalidone 25 mg tablet 12.5 mg PO DAILY 04/23/24 04/23/24 History gabapentin 100 mg capsule mg PO 04/23/24 History levothyroxine 112 mcg tablet 112 mcg PO QAM 04/23/24 04/23/24 History multivitamin 1 tab PO DAILY 04/23/24 04/23/24 History potassium chloride 20 mEq 20 meq PO DAILY 04/23/24 04/23/24 History tablet,extended release(part/cryst) (Klor-Con M) sertraline 100 mg tablet 100 mg PO DAILY 04/23/24 04/23/24 History spironolactone 25 mg tablet 25 mg PO QAM 04/23/24 04/23/24 History Allergies Allergy/AdvReac Type Severity Reaction Status Date / Time acetaminophen Allergy Unknown Nausea Verified 04/23/24 17:41 amlodipine Allergy Unknown Arthralgias Verified 04/23/24 17:41 codeine Allergy Unknown Verified 04/23/24 17:41 furosemide Allergy Unknown Rash Verified 04/23/24 17:41 hydrocodone Allergy Unknown Nausea Verified 04/23/24 17:41 latex Allergy Unknown Itching Verified 04/23/24 17:41 and bumpy rash lisinopril Allergy Unknown Tingling Verified 04/23/24 17:41 Milk derivatives Allergy Unknown Uncoded 04/23/24 17:41 Exam Narrative: Exam Narrative: She is alert and appears in no distress. She gives her own history. Eyes are normal. Sclerae nonicteric. Extraocular movements are full. No facial asymmetry. Oropharynx is normal except for small airway. Neck is supple without mass or adenopathy. Respirations are clear to auscultation with a rare basilar crackle. No wheezing. Fairly good air exchange in all lung jay. Cardiovascular: S1, S2, regular rate and rhythm. She has tenderness over her right CVA area in the back. There is no rash no trauma. Abdomen: Bowel sounds active. Abdomen is soft without tenderness or mass. External genitalia normal. She has a intertriginous rash in the left groin. No other skin rash. Extremities are noted with intact pulses intact sensation she moves all 4 extremities well no significant edema. Const: Vital Signs, click to edit/add: Vital Signs - 24 hr 04/23/24 14:40 04/23/24 14:49 04/23/24 14:50 Temperature 100.6 F H Pulse Rate 83 82 Pulse Rate [Pulse Oximeter] 85 Respiratory Rate 32 H Blood Pressure Blood Pressure [Le ft Upper Arm] 125/80 Pulse Oximetry 94 94 94 Oxygen Delivery Me thod Room Air Room Air Room Air 04/23/24 15:00 04/23/24 15:02 04/23/24 15:10 Temperature Pulse Rate 79 79 78 Pulse Rate [Pulse Oximeter] Respiratory Rate Blood Pressure 142/67 H Blood Pressure [Le ft Upper Arm] Pulse Oximetry 94 93 93 Oxygen Delivery Me thod Room Air Room Air Room Air 04/23/24 15:20 04/23/24 15:31 04/23/24 15:32 Temperature Pulse Rate 79 79 77 Pulse Rate [Pulse Oximeter] Respiratory Rate Blood Pressure 134/73 Blood Pressure [Le ft Upper Arm] Pulse Oximetry 93 91 91 Oxygen Delivery Me thod Room Air 04/23/24 15:33 04/23/24 15:35 04/23/24 15:37 Temperature 100.6 F H Pulse Rate 77 Pulse Rate [Pulse Oximeter] Respiratory Rate Blood Pressure Blood Pressure [Le ft Upper Arm] Pulse Oximetry 91 92 Oxygen Delivery Me thod 04/23/24 15:40 04/23/24 15:50 04/23/24 16:00 Temperature Pulse Rate 75 76 77 Pulse Rate [Pulse Oximeter] Respiratory Rate Blood Pressure Blood Pressure [Le ft Upper Arm] Pulse Oximetry 93 93 94 Oxygen Delivery Me thod 04/23/24 16:02 04/23/24 16:10 04/23/24 16:20 Temperature Pulse Rate 75 75 Pulse Rate [Pulse Oximeter] Respiratory Rate Blood Pressure 143/70 H Blood Pressure [Le ft Upper Arm] Pulse Oximetry 91 91 Oxygen Delivery Me thod 04/23/24 16:30 04/23/24 16:32 04/23/24 16:40 Temperature Pulse Rate 75 76 75 Pulse Rate [Pulse Oximeter] Respiratory Rate Blood Pressure 127/65 Blood Pressure [Le ft Upper Arm] Pulse Oximetry 90 91 91 Oxygen Delivery Me thod 04/23/24 17:18 04/23/24 17:42 Temperature 99.4 F Pulse Rate 76 Pulse Rate [Pulse Oximeter] Respiratory Rate Blood Pressure 125/67 112/59 L Blood Pressure [Le ft Upper Arm] Pulse Oximetry 91 Oxygen Delivery Me thod Documenting provider has reviewed patient's vital signs: yes Hospitalist - H&P: Result Labs Labs: Short CBC 04/23/24 Range/Units 15:25 WBC 10.27 (4.50-11.00) K/uL Hgb 12.9 (12.0-16.0) gm/dL Hct 39.3 (33.0-51.0) % Plt Count 149 (140-440) K/uL BMP 04/23/24 15:25 Sodium 134 L Potassium 2.8 L* Chloride 98 Carbon Dioxide 22 BUN 19 Creatinine 1.0 Glucose 266 H Calcium 9.5 Cardiac Enzymes 04/23/24 04/23/24 Range/Units 15:25 15:25 Troponin I 0.02 Cancelled (0.01-0.04) ng/mL Liver Function 04/23/24 Range/Units 15:25 Total Bilirubin 1.1 (0.1-1.5) mg/dL AST 39 H (12-35) U/L ALT 40 H (4-35) U/L Alkaline Phosphatase 43 (40-150) U/L Albumin 4.3 (3.3-5.0) g/dL Urine 04/23/24 Range/Units 17:00 Urine Color Yellow (Yellow) Urine Appearance Clear (Clear) Urine pH 5.5 (5.0-8.5) Ur Specific [place] 1.020 (1.000-1.030) Urine Protein Negative (Negative) Urine Glucose (UA) Negative (Negative) ECG Attestation: I personally reviewed and interpreted this ECG as follows: (Normal EKG. Normal sinus rhythm. No ST-T changes.) ECG interpretation date: 04/23/[address] Chest/Ab/Pelvis: Radiologist's impression: INDICATION: Right-sided chest pain, elevated D-dimer, fever, and weakness. CT CHEST, ABDOMEN, AND PELVIS WITH CONTRAST TECHNIQUE: Multidetector CT imaging was performed through the chest, abdomen, and pelvis following intravenous contrast administration using 95 mL Isovue 370. Coronal and sagittal reconstructions were generated. COMPARISON: 05/23/2020 CT abdomen and pelvis. FINDINGS: Lungs and airways: Multiple small noncalcified bilateral lung nodules, the largest in the right upper lobe on image 25 of series 5 measuring 9 millimeters in size. Those nodules in the lung bases included on the prior CT of the abdomen and pelvis appear stable. Nonspecific mild mosaic attenuation pattern in the lungs, most pronounced on the right. Central airways are patent. Pleura and pleural spaces: No pleural effusions or pneumothorax. Heart and mediastinum: Normal heart size. No significant pericardial effusion. Incompletely imaged postoperative changes of the thyroid. No pathologically enlarged mediastinal lymph nodes. Vascular structures: No filling defects in the pulmonary arterial tree to suggest pulmonary emboli. Normal caliber aorta. [id number] aortoiliac atherosclerotic changes. Chest wall and axillae: No mass or axillary lymphadenopathy. Liver and spleen: Unremarkable liver aside from a 1.7 centimeter cyst in the inferomedial right hepatic lobe on image 44 of series 2. Mild splenomegaly measuring 14.9 centimeters in AP dimension, slightly increased compared to the previous exam. Gallbladder and bile ducts: Status post cholecystectomy. Unchanged mild dilation of the extrahepatic bile duct likely reflecting post cholecystectomy reservoir effect. Pancreas, adrenals, and retroperitoneum: No pancreatic mass identified. Stable left adrenal 1.5 centimeter nodule. No pathologically enlarged lymph nodes identified in the abdomen or pelvis. Kidneys, ureters, and urinary bladder: Post ablated changes at the lower pole of the right kidney appear stable. Unchanged right renal cysts. Previously seen 1.7 x 1.6 centimeter hypodense lesion in the superior left kidney has decreased in size and now measures 1.4 x 1.2 centimeters, suggesting a benign etiology. Several tiny hypodense foci elsewhere in the left kidney are not well characterized but appear stable. No hydronephrosis. No bladder mass or definite wall thickening. Gastrointestinal tract and peritoneum: Postoperative changes at the esophagogastric junction likely representing prior Melony fundoplication. Nonspecific mild increase in small bowel gas and fluid without discrete caliber transition, favored to represent gastroenteritis. Early or partial small bowel obstruction is considered less likely. Multiple sigmoid colon diverticula are noted, without evidence of diverticulitis. No free air, abscess, or significant free fluid. Reproductive organs: Status post hysterectomy. Bones: Nondisplaced fractures of the anterior right 3rd and 4th ribs, favored to be subacute in age. Mild spinal degenerative changes. IMPRESSION: 1. Nonspecific mild prominence of small bowel gas and fluid, potentially representing gastroenteritis. Early or partial small bowel obstruction is considered less likely. 2. Mild mosaic attenuation pattern in the lungs, greatest on the right, nonspecific. Infection is not excluded. 3. Subacute nondisplaced fractures of the anterior right 3rd and 4th ribs. 4. No pulmonary emboli identified. 5. Nonacute additional findings as detailed above. Assessment and Plan Assessment and plan (1) Fever: Problem comment: Patient presents with fever and elevated lactic acid. She had tachypnea on admission but that is improved. Likely due to infection. Possible source of infection is pulmonary or urinary. Less likely GI. Empiric treatment with Zosyn pending cultures and clinical course Status: Acute (2) Lactic acid acidosis: Problem comment: Improved with resuscitation. With fever. Possible sepsis. Follow clinical course. Continue IV antibiotics pending clinical course and culture Status: Acute (3) Hypokalemia: Problem comment: Replace and follow Status: Acute (4) Hypomagnesemia: Problem comment: Replace and follow Status: Acute (5) Left-sided chest wall pain: Problem comment: Monitor and check troponin Status: Acute (6) Chronic diarrhea: Problem comment: Has diarrhea shortly after eating a meal with fecal incontinence. Consult in 06/13/2021 at [facility]. Evaluation for chronic diarrhea and fecal incontinence. Unclear if patient went through recommended evaluation. Status: Acute (7) Hepatic steatosis: Problem comment: Uncertain cause. Appears to be not alcohol related Status: Acute Plan 78-year-old female admitted to the hospital with fever and lactic acidosis. Concern for sepsis. Likely an infectious illness but the source is not definitely identified. Pending cultures and clinical course will treat empirically with Pipracil and tazobactam with ongoing evaluation. Total Time Spent Total Time Spent: Total time spent today is 80 minutes in evaluation and management.
[2024-04-23 19:51] LABS: Troponin I* 0.02 ng/mL (0.01-0.04)
[2024-04-23] MEDS: POTASSIUM BICARB 25 MEQ EFFERVESCENT TAB 50 MEQ PO (20:55)
[2024-04-23] MEDS: ENOXAPARIN 40 MG/0.4 ML INJ SUBCUT (20:55)
[2024-04-23] MEDS: GABAPENTIN 100 MG CAPSULE PO (20:55)
[2024-04-23] MEDS: SODIUM CHLORIDE 0.9 % (FLUSH) 10 ML SYRINGE 5 ML IVF (20:55)
[2024-04-24] VITALS (11 sets, daily range): BP systolic 95–167; BP diastolic 49–96; PULSE 59–77; RESP 18–30; TEMP 36.2–39.5; O2SAT 85–94
[2024-04-24] MEDS: PIPERACILLIN/TAZOBACTAM 3.375 GM in 0.9 % SODIUM CHLORIDE Mini-bag 100 ML IVPB ×4 (01:25→19:36)
[2024-04-24] MEDS: ACETAMINOPHEN 325 MG TABLET 650 MG PO ×2 (01:37→10:50)
[2024-04-24] MEDS: ONDANSETRON 2 MG/ML inj 4 MG IVP (01:40)
--- NOTE | 2024-04-24 06:36 | PC.NURSE ---
End of shift [id number]: Alert and oriented x 4. Patient reports a headache and intermittent low back pain. Pain well managed with current regimen. Nausea managed with PRN zofran, patient had one small emesis of water that she had just drank. Bowel sounds active x 4 quadrants, one loose stool this shift. Per patient she has been dealing with loose stools for several years, she has been seen in [place] for persistent loose stools but did not complete follow up. Chills and shivering reported, temp at 2100 98.4, at 2300 patient temp 100.1. At 0130 patient reported general malaise, requested tylenol which was effective for discomfort. Denies any SOB or chest pain, fine crackles noted to right base on auscultation, all other lung jay clear, reports dry cough but that she has a dry cough at baseline due to allergies. Ambulates independently, will utilize cane for uneven ground.
[2024-04-24 06:38] LABS: Lactate* 1.4 mmol/L (0.5-1.9)
[2024-04-24] MEDS: LEVOTHYROXINE 112 MCG TABLET PO (06:48)
[2024-04-24 06:49] LABS: Basophils Absolute Auto 0.02 K/uL (0.00-0.30); Basophils Percent Auto 0.4 % (0.0-3.0); Eosinophils Absolute Auto 0.01 K/uL (0.00-0.50); Eosinophils Percent Auto 0.2 % (0.0-7.0); Hematocrit 35.8 % (33.0-51.0); Hemoglobin* 11.8 gm/dL (12.0-16.0); Immature Granulocytes Abs Auto 0.07 K/uL (0.00-0.30); Immature Granulocytes Pct Auto 1.2 %; Mean Corpuscular HGB Conc 33 gm/dL (32-36); Mean Corpuscular Hemoglobin 29 pg (26-34); Mean Corpuscular Volume 88 fL (80-100); Monocytes Percent Auto 4.9 % (0.0-11.0); Neutrophils Percent Auto 89.3 % (42.0-72.0); Platelet Count* 121 K/uL (140-440); RDW Coefficient of Variation % 13.6 % (11.5-15.5); Red Blood Count 4.05 m/uL (4.00-5.20)
[2024-04-24 07:04] LABS: Chloride* 101 mmol/L (96-114)
[2024-04-24 07:05] LABS: Sodium* 135 mmol/L (135-149)
[2024-04-24 07:06] LABS: Slide Review Reflex No
[2024-04-24 07:07] LABS: Est. Creatinine Clearance* 40.68; Estimated Glomerular Filt Rate 58 ml/min
[2024-04-24 07:08] LABS: Anion Gap 6 mEq/L (7-15); Blood Urea Nitrogen* 18 mg/dL (7-30); Calcium* 8.4 mg/dL (8.4-10.6); Carbon Dioxide* 28 mmol/L (20-32); Glucose* 137 mg/dL (60-115)
[2024-04-24 07:09] LABS: Magnesium* 1.7 mg/dL (1.5-2.6)
[2024-04-24 07:20] LABS: Troponin I* 0.02 ng/mL (0.01-0.04)
[2024-04-24 07:28] LABS: C Reactive Protein* 16.1 mg/dL (0.5-1.0); Potassium* 2.8 mmol/L (3.6-5.1)
[2024-04-24] MEDS: POTASSIUM CHLORIDE 10 MEQ CAPSULE ER 40 MEQ PO ×2 (09:07→16:20)
[2024-04-24] MEDS: atenoloL 50 MG TABLET PO (09:07)
[2024-04-24] MEDS: GABAPENTIN 100 MG CAPSULE PO ×2 (09:07→20:48)
[2024-04-24] MEDS: MULTIVITAMIN/MINERALS 1 TABLET 1 TAB PO (09:07)
[2024-04-24] MEDS: SERTRALINE 100 MG TABLET PO (09:08)
--- NOTE | 2024-04-24 09:21 | P.IMPN_ITS ---
Progress Note: A&P Assessment and plan (1) Fever: Problem details: Patient presents with fever and elevated lactic acid. She had tachypnea on admission but that is improved. Likely due to infection. Possible source of infection is pulmonary or urinary. Less likely GI. Empiric treatment with Zosyn pending cultures and clinical course 04/24/24: urine culture pending Status: Acute (2) Lactic acid acidosis: Problem details: Improved with resuscitation. With fever. Possible sepsis. Follow clinical course. Continue IV antibiotics pending clinical course and culture 04/24/24: Lactic acid normalized Status: Acute (3) Chronic diarrhea: Problem details: Has diarrhea shortly after eating a meal with fecal incontinence. Consult in 06/13/2021 at [facility]. Evaluation for chronic diarrhea and fecal incontinence. Unclear if patient went through recommended evaluation. Status: Acute (4) Hypomagnesemia: Problem details: Replace and follow Status: Acute (5) Hypokalemia: Problem details: Replace and follow Status: Acute Plan DVT ppx-Lovenox Dispo-likely home 1-2 days pending culture data, improvment of hypokalemia Subjective Date Seen: 04/24/24 Interval history: patient admitted last night for possible UTI/Sepsis Continues to have diarrhea denies abdominal pain denies chest pain, sob afebrile this morning Exam Narrative: Exam Narrative: Gen: no acute distress HEENT: NCAT EOMI mmm CV: RRR normal s1 s2 Lungs: CTAB Abd: Soft,nt, nd Neuro: Alert, oriented, CN grossly intact; nonfocal screening?exam Psych: appropriate affect MSK: age appropriate muscle mass Skin; Warm, dry no rash on face Const: Vital Signs, click to edit/add: Vital Signs - 24 hr 04/23/24 14:40 04/23/24 14:49 04/23/24 14:50 Temperature 100.6 F H Pulse Rate 83 82 Pulse Rate [Pulse Oximeter] 85 Respiratory Rate 32 H Blood Pressure Blood Pressure [Le ft Arm] Blood Pressure [Le ft Upper Arm] 125/80 Blood Pressure [Ri ght Arm] Pulse Oximetry 94 94 94 Oxygen Delivery Me thod Room Air Room Air Room Air 04/23/24 15:00 04/23/24 15:02 04/23/24 15:10 Temperature Pulse Rate 79 79 78 Pulse Rate [Pulse Oximeter] Respiratory Rate Blood Pressure 142/67 H Blood Pressure [Le ft Arm] Blood Pressure [Le ft Upper Arm] Blood Pressure [Ri ght Arm] Pulse Oximetry 94 93 93 Oxygen Delivery Me od Room Air Room Air Room Air 04/23/24 15:20 04/23/24 15:31 04/23/24 15:32 Temperature Pulse Rate 79 79 77 Pulse Rate [Pulse Oximeter] Respiratory Rate Blood Pressure 134/73 Blood Pressure [Le ft Arm] Blood Pressure [Le ft Upper Arm] Blood Pressure [Ri ght Arm] Pulse Oximetry 93 91 [facility] 04/23/24 15:33 04/23/24 15:35 04/23/24 15:37 Temperature 100.6 F H Pulse Rate 77 Pulse Rate [Pulse Oximeter] Respiratory Rate Blood Pressure Blood Pressure [Le ft Arm] Blood Pressure [Le ft Upper Arm] Blood Pressure [Ri ght Arm] Pulse Oximetry 91 92 [facility] 04/23/24 15:40 04/23/24 15:50 04/23/24 16:00 Temperature Pulse Rate 75 76 77 Pulse Rate [Pulse Oximeter] Respiratory Rate Blood Pressure Blood Pressure [Le ft Arm] Blood Pressure [Le ft Upper Arm] Blood Pressure [Ri ght Arm] Pulse Oximetry 93 93 94 [facility] 04/23/24 16:02 04/23/24 16:10 04/23/24 16:20 Temperature Pulse Rate 75 75 Pulse Rate [Pulse Oximeter] Respiratory Rate Blood Pressure 143/70 H Blood Pressure [Le ft Arm] Blood Pressure [Le ft Upper Arm] Blood Pressure [Ri ght Arm] Pulse Oximetry 91 91 [facility] 04/23/24 16:30 04/23/24 16:32 04/23/24 16:40 Temperature Pulse Rate 75 76 75 Pulse Rate [Pulse Oximeter] Respiratory Rate Blood Pressure 127/65 Blood Pressure [Le ft Arm] Blood Pressure [Le ft Upper Arm] Blood Pressure [Ri ght Arm] Pulse Oximetry 90 91 91 [facility] 04/23/24 17:18 04/23/24 17:42 04/23/24 19:30 Temperature 99.4 F 98.7 F Pulse Rate 76 Pulse Rate [Pulse Oximeter] 66 Respiratory Rate 18 Blood Pressure 125/67 112/59 L Blood Pressure [Le ft Arm] Blood Pressure [Le ft Upper Arm] Blood Pressure [Ri ght Arm] 130/61 Pulse Oximetry 91 94 Oxygen Delivery Me thod Room Air 04/23/24 19:30 04/23/24 20:59 04/23/24 22:20 Temperature 99.2 F 99.8 F H Pulse Rate Pulse Rate [Pulse Oximeter] Respiratory Rate 18 Blood Pressure Blood Pressure [Le ft Arm] Blood Pressure [Le ft Upper Arm] Blood Pressure [Ri ght Arm] Pulse Oximetry 94 Oxygen Delivery Id thod Room Air 04/23/24 23:00 04/23/24 23:00 04/23/24 23:00 Temperature 99.8 F H Pulse Rate Pulse Rate [Pulse Oximeter] 66 66 Respiratory Rate 18 18 18 Blood Pressure Blood Pressure [Le ft Arm] Blood Pressure [Le ft Upper Arm] Blood Pressure [Ri ght Arm] 117/70 Pulse Oximetry 94 92 [facility] Room Air 04/24/24 03:00 04/24/24 07:43 04/24/24 07:43 Temperature 97.1 F L Pulse Rate Pulse Rate [Pulse Oximeter] 62 66 Respiratory Rate 20 20 Blood Pressure Blood Pressure [Le ft Arm] Blood Pressure [Le ft Upper Arm] Blood Pressure [Ri ght Arm] 120/64 Pulse Oximetry 90 92 [facility] Room Air 04/24/24 07:43 Temperature 99.3 F Pulse Rate Pulse Rate [Pulse Oximeter] 66 Respiratory Rate 18 Blood Pressure Blood Pressure [Le ft Arm] 118/60 Blood Pressure [Le ft Upper Arm] Blood Pressure [Ri ght Arm] Pulse Oximetry 92 [facility] Labs Labs: Laboratory Results - last 24 hr 04/23/24 04/23/24 04/23/24 15:25 15:25 15:25 WBC 10.27 RBC 4.46 Hgb 12.9 Hct 39.3 MCV 88 MCH 29 MCHC 33 RDW Coeff of Mansi 13.4 Plt Count 149 Neut % (Auto) 93.0 H Lymph % (Auto) 1.9 L [place] % (Auto) 3.5 Eos % (Auto) 0.1 Baso % (Auto) 0.2 Neut # (Auto) 9.60 H Lymph # (Auto) 0.20 L [place] # (Auto) 0.40 Eos # (Auto) 0.01 Baso # (Auto) 0.02 Abs Immat Gran (auto) 0.13 Imm/Tot Granulo (auto) 1.3 D-Dimer Quant (PE/DVT) 0.80 H VBG pH 7.402 VBG pCO2 39 L VBG pO2 33.3 VBG HCO3 24 Sodium 134 L Potassium 2.8 L* Chloride 98 Carbon Dioxide 22 Anion Gap 14 BUN 19 Creatinine 1.0 Estimated Creat Clear 40.68 Estimated GFR 58 Glucose 266 H Hemoglobin A1c 6.2 H Lactate 6.7 H* Calcium 9.5 Magnesium 1.4 L Total Bilirubin 1.1 AST 39 H ALT 40 H Alkaline Phosphatase 43 Troponin I 0.02 Cancelled C-Reactive Protein 6.2 H NT-Pro-B Natriuret Pep 1410 Total Protein 6.9 Albumin 4.3 Procalcitonin 6.25 H Cancelled TSH Urine Color Urine Appearance Urine pH Ur Specific [place] Urine Protein Urine Glucose (UA) Urine Ketones Urine Blood Urine Nitrite Urine Bilirubin Urine Urobilinogen Ur Leukocyte Esterase Urine RBC Urine WBC Ur Squamous Epith Cells Urine Bacteria SARS-CoV-2 (PCR) Negative SARS-CoV-2 Influenza Type A (PCR) Negative PCR FLU A Influenza Type B (PCR) Negative PCR FLU B RSV (PCR) Negative PCR RSV Lab Acknowledgement 04/23/24 04/23/24 04/23/24 17:00 17:40 18:45 WBC RBC Hgb Hct MCV MCH MCHC RDW Coeff of Mansi Plt Count Neut % (Auto) Lymph % (Auto) [place] % (Auto) Eos % (Auto) Baso % (Auto) Neut # (Auto) Lymph # (Auto) [place] # (Auto) Eos # (Auto) Baso # (Auto) Abs Immat Gran (auto) Imm/Tot Granulo (auto) D-Dimer Quant (PE/DVT) VBG pH VBG pCO2 VBG pO2 VBG HCO3 Sodium Potassium Chloride Carbon Dioxide Anion Gap BUN Creatinine Estimated Creat Clear Estimated GFR Glucose Hemoglobin A1c Lactate 1.9 Calcium Magnesium Total Bilirubin AST ALT Alkaline Phosphatase Troponin I 0.02 C-Reactive Protein NT-Pro-B Natriuret Pep Total Protein Albumin Procalcitonin TSH Urine Color Yellow Urine Appearance Clear Urine pH 5.5 Ur Specific [place] 1.020 Urine Protein Negative Urine Glucose (UA) Negative Urine Ketones Negative Urine Blood Negative Urine Nitrite Negative Urine Bilirubin Negative Urine Urobilinogen 0.2 Ur Leukocyte Esterase Trace A Urine RBC 2-5 A Urine WBC 5-10 A Ur Squamous Epith Cells Few Urine Bacteria Few A SARS-CoV-2 (PCR) Influenza Type A (PCR) Influenza Type B (PCR) RSV (PCR) Lab Acknowledgement Test Added Test Added 04/24/24 06:18 WBC 5.70 RBC 4.05 Hgb 11.8 L Hct 35.8 MCV 88 MCH 29 MCHC 33 RDW Coeff of Mansi 13.6 Plt Count 121 L Neut % (Auto) 89.3 H Lymph % (Auto) 4.0 L [place] % (Auto) 4.9 Eos % (Auto) 0.2 Baso % (Auto) 0.4 Neut # (Auto) 5.10 Lymph # (Auto) 0.20 L [place] # (Auto) 0.30 Eos # (Auto) 0.01 Baso # (Auto) 0.02 Abs Immat Gran (auto) 0.07 Imm/Tot Granulo (auto) 1.2 D-Dimer Quant (PE/DVT) VBG pH VBG pCO2 VBG pO2 VBG HCO3 Sodium 135 Potassium 2.8 L* Chloride 101 Carbon Dioxide 28 Anion Gap 6 L BUN 18 Creatinine 1.0 Estimated Creat Clear 40.68 Estimated GFR 58 Glucose 137 H Hemoglobin A1c Lactate 1.4 Calcium 8.4 Magnesium 1.7 Total Bilirubin AST ALT Alkaline Phosphatase Troponin I 0.02 C-Reactive Protein 16.1 H NT-Pro-B Natriuret Pep Total Protein Albumin Procalcitonin TSH 0.230 L Urine Color Urine Appearance Urine pH Ur Specific [place] Urine Protein Urine Glucose (UA) Urine Ketones Urine Blood Urine Nitrite Urine Bilirubin Urine Urobilinogen Ur Leukocyte Esterase Urine RBC Urine WBC Ur Squamous Epith Cells Urine Bacteria SARS-CoV-2 (PCR) Influenza Type A (PCR) Influenza Type B (PCR) RSV (PCR) Lab Acknowledgement
--- NOTE | 2024-04-24 10:44 | CRLHL7_ITS ---
For Patients: As a result of the Century Cures Act, medical imaging exams and procedure reports are released immediately into your electronic medical record. You may view this report before your referring provider. If you have questions, please contact your health care provider. Indication: Fever Technique: AP view of the chest. Comparison: 04/23/2024 Findings: Mildly enlarged cardiomediastinal silhouette. Moderate peribronchial cuffing and interstitial prominence. No focal consolidation, pleural effusions, or visualized pneumothorax. Impression: Moderate peribronchial cuffing and interstitial prominence may represent airways infection or inflammation versus mild pulmonary edema. Dictated by Terrell Montilla MD @ 04/24/2024 11:44:30 AM (Electronically Signed)
[2024-04-24 11:17] LABS: Lactate* 1.5 mmol/L (0.5-1.9)
[2024-04-24 11:44] LABS: Procalcitonin* 4.19 ng/mL (<0.50)
[2024-04-24] MEDS: LACTATED RINGERS 1000 ML 1,000 ML 125 ML IV ×2 (12:05→22:42)
--- NOTE | 2024-04-24 18:48 | PC.NURSE ---
Nursing Care Hours: [id number] Pt this shift calm and cooperative but reports feelings of malaise. Independent in room, no c/o pain. Temp increased to 103.1, treated with Tylenol. Reported VS to hospitalist and new orders received and implemented. New IV placed in L hand d/t infiltration. Pt c/o bilat hands puffy. Required supplemental O2 while sleeping to keep sats at 92%. Educated and started IS. [employer] Sander Tender noted snoring during sleep. Discussed MIGUEL signs and symptoms, pt states she had a sleep study done but can not tolerate the CPAP. No BM this shift, BS hypoactive. Voiding in toilet. Small amount of ensure given with ice cream for breakfast. tolerating small amounts of food for meals. Pt states feeling better after 3 hour nap this afternoon. Scabs on bilat legs closed, no drainage. Fluids started this shift. Pt voiding sufficiently.
[2024-04-24 19:40] LABS: Potassium* 3.4 mmol/L (3.6-5.1)
[2024-04-24] MEDS: NYSTATIN POWDER 1 APPLIC TOPICAL (20:47)
[2024-04-24] MEDS: ENOXAPARIN 40 MG/0.4 ML INJ SUBCUT (20:48)
[2024-04-24 23:53] LABS: CDIFFEPI 027 PRESUMPTIVE NEGATIVE (Negative)
[2024-04-24 23:56] LABS: C.Difficile POSITIVE (Negative)
[2024-04-25] MEDS: PIPERACILLIN/TAZOBACTAM 3.375 GM in 0.9 % SODIUM CHLORIDE Mini-bag 100 ML IVPB ×2 (00:24→06:20)
[2024-04-25] MEDS: VANCOMYCIN 125 MG CAPSULE PO ×3 (00:25→12:37)
[2024-04-25 00:30] VITALS: TEMP 36.8; O2SAT 84
[2024-04-25 02:36] VITALS: BP 125/63; PULSE 66; RESP 20; TEMP 36.7; O2SAT 91
[2024-04-25] MEDS: LEVOTHYROXINE 112 MCG TABLET PO (06:21)
--- NOTE | 2024-04-25 06:51 | PC.NURSE ---
19-: pleasant and cooperative. Indep in room. Pt c/o feeling hot flashes/chills throughout night, afebrile, warm blankets given prn. Pt had 2 loose stools this shift, CDIFF POS, contact precautions put in place, started oral Vanco. Pt O2 sats decrease into the 70s when asleep, placed pt on 2L O2 via NC, pt took it off and declined wearing it, educated pt on O2 sats, pt replied with ?i know. I just want to go home and sleep in my own bed?.
[2024-04-25 06:52] LABS: Basophils Absolute Auto 0.04 K/uL (0.00-0.30); Basophils Percent Auto 0.7 % (0.0-3.0); Eosinophils Percent Auto 3.4 % (0.0-7.0); Hematocrit 35.6 % (33.0-51.0); Hemoglobin* 11.7 gm/dL (12.0-16.0); Immature Granulocytes Abs Auto 0.04 K/uL (0.00-0.30); Immature Granulocytes Pct Auto 0.7 %; Lymphocytes Percent Auto 12.8 % (20-44); Mean Corpuscular HGB Conc 33 gm/dL (32-36); Mean Corpuscular Hemoglobin 29 pg (26-34); Mean Corpuscular Volume 89 fL (80-100); Neutrophils Percent Auto 76.4 % (42.0-72.0); Platelet Count* 113 K/uL (140-440); RDW Coefficient of Variation % 13.9 % (11.5-15.5); Red Blood Count 4.02 m/uL (4.00-5.20); White Blood Count* 5.86 K/uL (4.50-11.00)
[2024-04-25 07:02] LABS: Slide Review Reflex No
[2024-04-25 07:16] LABS: Chloride* 103 mmol/L (96-114); Potassium* 3.3 mmol/L (3.6-5.1); Sodium* 134 mmol/L (135-149)
[2024-04-25 07:19] LABS: Est. Creatinine Clearance* 40.68; Estimated Glomerular Filt Rate 58 ml/min
[2024-04-25 07:20] LABS: Anion Gap 5 mEq/L (7-15); Blood Urea Nitrogen* 16 mg/dL (7-30); Calcium* 8.5 mg/dL (8.4-10.6); Carbon Dioxide* 26 mmol/L (20-32); Glucose* 103 mg/dL (60-115)
[2024-04-25 08:27] VITALS: BP 140/84; PULSE 67; RESP 20; TEMP 36.7; O2SAT 91
[2024-04-25 08:31] VITALS: O2SAT 91
[2024-04-25 08:32] VITALS: PULSE 140; RESP 20
[2024-04-25] MEDS: GABAPENTIN 100 MG CAPSULE PO (09:22)
[2024-04-25] MEDS: LACTATED RINGERS 1000 ML 1,000 ML 125 ML IV (09:22)
[2024-04-25] MEDS: atenoloL 50 MG TABLET PO (09:22)
[2024-04-25] MEDS: MULTIVITAMIN/MINERALS 1 TABLET 1 TAB PO (09:23)
[2024-04-25] MEDS: NYSTATIN POWDER 1 APPLIC TOPICAL (09:23)
[2024-04-25] MEDS: SERTRALINE 100 MG TABLET PO (09:23)
[2024-04-25] MEDS: CIPROFLOXACIN 500 MG TABLET PO (09:23)
[2024-04-25 11:18] VITALS: BP 169/87; PULSE 65; RESP 18; TEMP 36.6; O2SAT 91
--- NOTE | 2024-04-25 11:56 | PM.DS1 ---
DS: Providers Provider Date Seen: 04/25/24 Date of admission: 04/23/24 19:27 Primary care physician: Norma Pérez DO Admitting Clinician: Solitario Mitchell MD Attending Physician on discharge: Cecil Fraga Date of Discharge: 04/25/24 DS: Diagnosis Discharge Diagnosis (1) Sepsis: Status: Acute Problem details: presented with fever, lactic acidosis; tachypnea. secondary to Klebsiella UTI and c diff colitis; treated with zosyn and PO vanco; transitioning to cipro +PO vanco. final blood cx and stool cx pending will need outpatient follow up (2) UTI (urinary tract infection): Status: Acute (3) C. difficile colitis: Status: Acute (4) Lactic acid acidosis: Status: Acute Problem details: Resolved with resuscitation. 04/24/24: Lactic acid normalized (5) Chronic diarrhea: Status: Acute Problem details: Has diarrhea shortly after eating a meal with fecal incontinence. Consult in 06/13/2021 at [facility]. Evaluation for chronic diarrhea and fecal incontinence. Unclear if patient went through recommended evaluation. found to have Positive C diff on 04/24 (6) Hypomagnesemia: Status: Acute Problem details: Replace and follow (7) Hypokalemia: Status: Acute Problem details: Replace and follow DS: Summary Hospital Course Hospital Course: Hospitalist- H&P: HPI History of Present Illness Date Seen: 04/23/24 Chief complaint: Heart pain, temp, chest pain last night Narrative: Jennifer Stock is a 78 year old female admitted through the emergency department with onset of fever chills fatigue malaise and chest pain starting during the night last night. Patient reports that she was feeling well yesterday when she went to bed. She awoke about 2:00 a.m. with shaking chills and then about 2 hours later developed fever. She then noted some headache and chest pain. She has had profound fatigue and malaise today. She reports no cold or cough, pharyngitis. She has had nausea and has had 3 emesis today which were nonbloody. She has had no appetite and is eating no food today. She notes some right flank pain as well. Previous history of a right kidney cancer status post ablation at [facility] several years ago. She has chronic nonbloody diarrhea which is unchanged from previous. She also has rectal incontinence which is chronic. She has not had any specific urinary symptoms. She has had no recent travel and has not been outside her home much. She has had chronic diarrhea and chronic rectal incontinence for about 18 years. Started after her Melony fundoplication and gastric surgery in 2005. She has had evaluation at [facility] for this. She tells me she did not complete evaluation but apparently did have a colonoscopy which she said was normal. HOSPITAL COURSE 1) presented with fever, lactic acidosis; tachypnea. secondary to Klebsiella UTI and c diff colitis; treated with zosyn and PO vanco; transitioning to cipro +PO vanco. final blood cx and stool cx pending will need outpatient follow up PCP POST HOSPITAL FOLLOW UP RECS 1) Follow up on pending blood cx, stool cx 2) Check electrolytes; adjust potassium regimen as needed 3) Post hospital follow up medication mangament 4) Follow up pulmonary nodules Time Spent with Patient Time attestation: Total time spent providing and/or coordinating discharge services: Exam Narrative: Exam Narrative: Gen: no acute distress HEENT: NCAT EOMI mmm Neck: Supple CV: RRR normal s1 s2 Lungs: CTAB Abd: Soft,nt, nd Neuro: Alert, oriented, CN grossly intact; nonfocal screening?exam Psych: appropriate affect MSK: age appropriate muscle mass Skin; Warm, dry no rash on face Const: Vital Signs, click to edit/add: Vital Signs - 24 hr 04/24/24 12:06 04/24/24 12:07 04/24/24 14:35 Temperature 100.3 F H 100.3 F H 98.3 F Pulse Rate [Pulse Oximeter] 71 59 L Respiratory Rate 20 29 H Blood Pressure [Le ft Arm] 101/49 L 112/63 Blood Pressure [Ri ght Arm] Pulse Oximetry 90 91 Oxygen Delivery Me thod Nasal Cannula Nasal Cannula Oxygen Flow Rate 1 1.5 04/24/24 15:00 04/24/24 20:20 04/24/24 23:00 Temperature 98.3 F Pulse Rate [Pulse Oximeter] 65 67 Respiratory Rate 30 H 20 20 Blood Pressure [Le ft Arm] Blood Pressure [Ri ght Arm] 125/67 Pulse Oximetry 92 94 Oxygen Delivery Me thod Nasal Cannula Room Air Oxygen Flow Rate 1.5 04/24/24 23:00 04/24/24 23:00 04/25/24 00:30 Temperature 99.8 F H 98.2 F Pulse Rate [Pulse Oximeter] 67 Respiratory Rate 20 Blood Pressure [Le ft Arm] Blood Pressure [Ri ght Arm] 167/96 H Pulse Oximetry 92 92 Oxygen Delivery Me thod Room Air Room Air Oxygen Flow Rate 04/25/24 00:30 04/25/24 02:36 04/25/24 08:27 Temperature 98.1 F 98.1 F Pulse Rate [Pulse Oximeter] 66 67 Respiratory Rate 20 20 Blood Pressure [Le ft Arm] Blood Pressure [Ri ght Arm] 125/63 140/84 H Pulse Oximetry 84 L 91 91 Oxygen Delivery Me thod Room Air Room Air Room Air Oxygen Flow Rate 04/25/24 08:31 04/25/24 08:32 04/25/24 11:18 Temperature 97.9 F Pulse Rate [Pulse Oximeter] 140 H 65 Respiratory Rate 20 18 Blood Pressure [Le ft Arm] Blood Pressure [Ri ght Arm] 169/87 H Pulse Oximetry 91 91 Oxygen Delivery Me thod Room Air Room Air Oxygen Flow Rate DS: Data Data Completed and Pending Labs on day of discharge: Labs from last 24 hours 04/25/24 04/24/24 04/24/24 06:00 22:45 19:10 WBC 5.86 RBC 4.02 Hgb 11.7 L Hct 35.6 MCV 89 MCH 29 MCHC 33 RDW Coeff of Mansi 13.9 Plt Count 113 L Neut % (Auto) 76.4 H Lymph % (Auto) 12.8 L Ellis % (Auto) 6.0 Eos % (Auto) 3.4 Baso % (Auto) 0.7 Neut # (Auto) 4.50 Lymph # (Auto) 0.80 L Ellis # (Auto) 0.40 Eos # (Auto) 0.20 Baso # (Auto) 0.04 Abs Immat Gran (auto) 0.04 Imm/Tot Granulo (auto) 0.7 Sodium 134 L Potassium 3.3 L 3.4 L Chloride 103 Carbon Dioxide 26 Anion Gap 5 L BUN 16 Creatinine 1.0 Estimated Creat Clear 40.68 Estimated GFR 58 Glucose 103 Calcium 8.5 C-Reactive Protein 14.0 H Stl C. diff Tox B Gene POSITIVE A* Stl C. diff [id number] PRESUMPTIVE NEGATIVE Preliminary micro results at discharge 04/24/24 11:17 Blood Culture - Preliminary Blood NO GROWTH AFTER 24 HOURS 04/23/24 16:38 Blood Culture - Preliminary Blood NO GROWTH AFTER [address] scan - chest: Radiologist's impression: IMPRESSION: 1. Nonspecific mild prominence of small bowel gas and fluid, potentially representing gastroenteritis. Early or partial small bowel obstruction is considered less likely. 2. Mild mosaic attenuation pattern in the lungs, greatest on the right, nonspecific. Infection is not excluded. 3. Subacute nondisplaced fractures of the anterior right 3rd and 4th ribs. 4. No pulmonary emboli identified. 5. Nonacute additional findings as detailed above. Discharge Plan Discharge Disposition: Home, Self-Care Date of Admission: 04/23/24 19:27 Attending Provider on Discharge: Cecil Fraga Primary Care Provider: Norma Pérez Condition: Improved Anticipated Discharge Date/Time: 04/25/24 11:27 Discharge Medications: New ciprofloxacin HCl 500 mg tablet 500 mg PO BID Qty: 10 0RF vancomycin 125 mg capsule 125 mg PO QID Qty: 40 0RF Rx Instructions: Take one capsule four times a day for ten days Continued sertraline 100 mg tablet 100 mg PO DAILY chlorthalidone 25 mg tablet 12.5 mg PO DAILY spironolactone 25 mg tablet 25 mg PO QAM potassium chloride [Klor-Con M20] 20 mEq tablet,ER particles/crystals 20 meq PO DAILY gabapentin 100 mg capsule 200 mg PO BID atenolol 50 mg tablet 50 mg PO DAILY levothyroxine 112 mcg tablet 112 mcg PO QAM multivitamin Tablet 1 tab PO DAILY acetaminophen 500 mg capsule 1,000 mg PO Q12H cholecalciferol (vitamin D3) 25 mcg (1,000 unit) capsule 25 mcg PO DAILY NERVE SHIELD PRO 1 cap PO BID Discharge Orders: Discharge Order (Routine); Ordered 04/25/24 Ordered By: Cecil Fraga Patient Education: Ciprofloxacin (By mouth), Vancomycin (By mouth), Urinary Tract Infection in Women (DC), C. Diff (Clostridioides Difficile) Infection (DC) Activity Level: Activity as Tolerated Diet Detail: Resume previous home diet Follow Up Appointments: Jammie Macedo MD [Referring] - 05/01/24 9:05 am ([facility] for follow up appointment. PCP was unavailable during the desired time. Appointment to have labs drawn on 04/29 @11:00AM at [facility]. Please arrive about 5 minutes early for registration ) Norma Pérez, [Primary Care Provider] - () Forms: MyHealth Info Instructions
[2024-04-25] MEDS: MAGNESIUM OXIDE 400 MG TABLET PO (12:37)
[2024-04-25 12:51] LABS: Magnesium* 1.8 mg/dL (1.5-2.6)
--- NOTE | 2024-04-25 14:15 | PC.NURSE ---
Discharge. pt has been very pleasant. she is alert x4. no pain and no fever. she is up ab johnna in the room. she was placed on RA this am and o2 was turned off. Sao2 was above 90% on RA all day. Pt had 3 loose stools this shift, she is c-diff +, contact precautions done , she is on po Vanco and po cipro. she said she wanted to go home. was in to see and did the discharge. went over discharge packet went over medications, appointment, instruction and educations. she went over and signed personal belonging list. she got a w/c ride to her car.
== END 2024-04-25 13:40 | disposition home or self-care (01) | DRG 872 ==
LOC: ED 15:45 → MEDSURG 19:27
PROVIDERS: Hospitalist; Admitting Provider Family Medicine; Emergency Provider Family Medicine; PCP Family Medicine; Visit Provider Family Medicine
DX: A41.9 Sepsis, unspecified organism (principal); N39.0 Urinary tract infection, site not specified; A04.72 Enterocolitis due to Clostridium difficile, not specified as recurrent; E87.21 Acute metabolic acidosis; Q85.81 PTEN hamartoma tumor syndrome; Q87.89 Other specified congenital malformation syndromes, not elsewhere classified; B96.1 Klebsiella pneumoniae [K. pneumoniae] as the cause of diseases classified elsewhere; R07.89 Other chest pain; R15.9 Full incontinence of feces; E87.6 Hypokalemia; E83.42 Hypomagnesemia; I10 Essential (primary) hypertension; L30.4 Erythema intertrigo; K76.0 Fatty (change of) liver, not elsewhere classified; F32.A Depression, unspecified; E78.5 Hyperlipidemia, unspecified; Z85.528 Personal history of other malignant neoplasm of kidney; Z85.850 Personal history of malignant neoplasm of thyroid
CPT/HCPCS: 36415; 71045; 71275; 74177; 80048; 80053; 81001; 82803; 83036; 83605; 83735; 83880; 84132; 84145; 84443; 84484; 85025; 85379; 86140; 87040; 87045; 87046; 87077; 87081; 87086; 87186; 87427; 87493; 87631; 93005; 94761; 99284; 99285; A9153; A9270; J1650; J2405; J2543; J3475; J3480; J7030; J7120; Q9967